=== PATIENT | male | born 1955 | race Caucasian/White ===

== ENCOUNTER → 2017-06-25 | Outpatient (CLI) | payer MEDICARE, BC ==
--- NOTE | 2017-06-25 13:50 | CT ---
EXAMINATION TYPE: CT soft tissue neck w con DATE OF EXAM: 06/25/2017 HISTORY: Parathyroid Adenoma COMPARISON: NONE CT DLP: 719 mGycm. Automated Exposure Control for Dose Reduction was Utilized. TECHNIQUE: CT scan of the neck is performed with IV Contrast, patient injected with 100 ml mL of Iso leora 300, axial images are obtained, coronal and sagittal reformatted images are reviewed. FINDINGS: Airway: Nasopharyngeal and oropharyngeal airways are patent. Region of epiglottis and vallecula is wi thin normal limits. Hypopharyngeal airway is grossly unremarkable. There are scattered small nodules throughout the thyroid, largest measures up to 1 cm long axis mid pole level left thyroid on axial im age 60. There is no suspicious posterior thyroid soft tissue nodule to suggest parathyroid adenoma. There is mild emphysematous change with blebs in the lung apices. There is 5 mm subpleural nodule ant erolateral right upper lung axial image 88. Parotid/submandibular glands: No gross abnormality seen. Carotid/Vascular Structures: No significant focal plaque at carotid bulb level bilaterally. Osseous Structures: There is loss of normal cervical curvature. There is posterior spur disc complex effacing anterior thecal sac C6-C7 level on sagittal image 59 confirmed left paracentral region axial image 58 and causing asymmetric moderate to advanced left-sided neural foraminal narrowing. Other: No greater than 1 cm neck adenopathy is present bilaterally. There are scattered prominent but subcentimeter neck lymph nodes. IMPRESSION: 1. No suspicious soft tissue nodule in region of thyroid bed to suggest parathyroid adenoma. Consider nuclear medicine confirmation. 2. Scattered thyroid nodules measuring up to 1.0 cm in size left thyroid lobe. Consider thyroid ultra sound follow-up to further evaluate and characterize. 3. There is 5 mm anterolateral right upper lung nodule, consider dedicated chest CT to further evalua te for possible additional nodules.
== END | disposition home or self-care (01) ==
LOC: RADCTMAIN 12:35
PROVIDERS: ATTEND Surgery
DX: E04.2 Nontoxic multinodular goiter (principal); Z88.5 Allergy status to narcotic agent; Z88.8 Allergy status to other drugs, medicaments and biological substances
CPT/HCPCS: 82310; 83970; 70491; 36415; Q9967

== ENCOUNTER 2017-07-13 10:00 | Day surgery (SDC) | payer MEDICARE, BC ==
[2017-07-02 09:43] VITALS: BMI 39.4
[~2017-07-13 10:00] MED LIST: DEXAMETHASONE SOD PHOSPHATE 10 MG/ML 1 ML VIAL IV ONE; MIDAZOLAM 2 MG/2 ML VIAL IV PRN; ONDANSETRON 4 MG/2 ML VIAL IVP ONE; Pre Op ABX Message 1 EACH MISC MISCELLANE ONE; SCOPOLAMINE 1.5MG/72HR PATCH TRANSDERM ONE; fentaNYL (PF) 50 MCG/ML 2 ML AMP IV PRN
[2017-07-13] MEDS ORDERED: HEPARIN SODIUM,PORCINE 5,000 UNIT/ML 1 ML VIAL SQ STA (10:49)
[2017-07-13] MEDS ORDERED: LIDOCAINE 1% 20 ML VIAL (10MG/ML) FOR IV START INTRADERMA ONE (11:01)
[2017-07-13] MEDS: LACTATED RINGERS 1,000 ML IV SCH ×2 (11:01→11:21)
[2017-07-13] MEDS ORDERED: LIDOCAINE 1% INJ 10MG/ML (20 ML MDV) ONE (11:24)
[2017-07-13] MEDS ORDERED: PHENYLEPHRINE-0.9% NACL SYG 1 MG/10 ML SYRINGE ONE (11:24)
[2017-07-13] MEDS ORDERED: PROPOFOL 10 MG/ML 20 ML VIAL IV ONE (11:24)
[2017-07-13] MEDS ORDERED: GLYCOPYRROLATE 0.2 MG/ML 2 ML VIAL ONE (11:24)
[2017-07-13] MEDS ORDERED: MIDAZOLAM 2 MG/2 ML VIAL ONE (11:24)
[2017-07-13] MEDS ORDERED: fentaNYL (PF) 50 MCG/ML 2 ML AMP ONE (11:24)
[2017-07-13] MEDS ORDERED: SUCCINYLCHOLINE CHLORIDE 100 MG/5 ML SYR IV ONE (11:24)
[2017-07-13] MEDS ORDERED: HEPARIN SODIUM,PORCINE 5,000 UNIT/ML 1 ML VIAL SQ ONE (11:27)
[2017-07-13] MEDS ORDERED: LACTATED RINGERS 1,000 ML IV ONE (12:05)
[2017-07-13] MEDS ORDERED: NALOXONE 0.4 MG/ML 1 ML VIAL IV PRN (13:34)
[2017-07-13] MEDS ORDERED: ONDANSETRON 4 MG/2 ML VIAL IVP PRN (13:34)
--- NOTE | 2017-07-13 13:34 | P.OP ---
Date of Procedure: 07/13/17 Preoperative Diagnosis: Primary hyperparathyroidism Postoperative Diagnosis: Left superior pole parathyroid adenoma Procedure(s) Performed: Neck exploration, excision of left superior parathyroid adenoma Anesthesia: KENNYA Surgeon: Bela Armas Estimated Blood Loss (ml): 15 IV fluids (ml): 1,400 Pathology: other (Left superior pole parathyroid) Condition: stable Disposition: PACU Indications for Procedure: Primary hyperparathyroidism Operative Findings: Enlarged left superior parathyroid Description of Procedure: Patient is a 62-year-old white male who was diagnosed with primary hyperparathyroidism. He had a sestamibi scan as well as a CAT scan which were suspicious for a left superior pole parathyroid adenoma. The patient was taken to the operating room following the induction of general anesthesia the nerve stimulator probes were placed. The neck was prepped and draped in a sterile fashion. The patient was placed in the beachchair position. A collar incision was made and carried down through the skin and subcutaneous tissue and platysma. Superior and inferior skin flaps were developed. Retractors were placed and the strap muscles were in the midline. The left lobe of the thyroid was identified and approached. The lobe was rotated medially. To facilitate this was necessary to ligate the superior pole vessels. Additionally it was necessary to ligate several inferior pole vessels. As the lobe was rotated medially what was believed to be the inferior parathyroid was identified and preserved. The area of the recurrent laryngeal nerve was carefully identified, and preserved. At this point there was a large soft tissue mass which was approximately 2.5 x 1 cm in size identified posterior to the superior pole of the left lobe. It appeared that it had bled into this mass with an intra-lesion hematoma, the area was carefully dissected free. The specimen was removed and sent to pathology for frozen section evaluation. On frozen section this was consistent with a parathyroid hypercellular lesion. Palpation in the area did not reveal any residual additional gland tissue. We then determined that hemostasis was attained and the right side of the lobe was evaluated. No evidence of any enlarged glands were identified. After we were assured that hemostasis was attained the wound was well irrigated. Strap muscles were closed in the midline using a Vicryl suture. This was followed by closure of the platysma with a Vicryl suture. The skin was closed with 4-0 Monocryl. Steri-Strips were applied. All instrument and sponge counts were correct at the end of the case.
[2017-07-13] MEDS: MORPHINE SULFATE 4MG/4ML SYRG IV PRN ×2 (15:57→20:57)
[2017-07-13] MEDS: DEXTROSE 5%-0.45% NACL 1,000 ML IV SCH (16:00)
[2017-07-13] MEDS: HEPARIN SODIUM,PORCINE 5,000 UNIT/ML 1 ML VIAL SQ SCH (18:17)
[2017-07-13] MEDS: CALCIUM CARB-VIT D 500MG-200UN 1 EACH TAB PO SCH (18:17)
[2017-07-13] MEDS: FAMOTIDINE 20 MG TAB PO SCH (20:51)
[2017-07-13] MEDS ORDERED: NITROGLYCERIN SL TABS 0.4 MG TAB SUBLINGUAL PRN (21:22)
[2017-07-13] MEDS ORDERED: HYDROcodone/APAP 7.5-325MG 1 EACH TAB PO PRN (21:22)
[2017-07-13] MEDS ORDERED: FLUTICASONE 50MCG/SPRAY NASAL 16GM EA NOSTRIL PRN (21:22)
[2017-07-13] MEDS: METOPROLOL TARTRATE 50 MG TAB PO SCH (22:16)
[2017-07-13] MEDS ORDERED: HYDROcodone/APAP 7.5-325MG 1 EACH TAB ONE (23:20)
[2017-07-14] MEDS ORDERED: HYDROcodone/APAP 7.5-325MG 1 EACH TAB ONE
[2017-07-14] MEDS ORDERED: HEPARIN SODIUM,PORCINE 5,000 UNIT/ML 1 ML VIAL ONE
[2017-07-14] MEDS: DEXTROSE 5%-0.45% NACL 1,000 ML IV SCH (05:20)
[2017-07-14] MEDS: HEPARIN SODIUM,PORCINE 5,000 UNIT/ML 1 ML VIAL SQ SCH ×2 (05:20→08:09)
[2017-07-14] MEDS ORDERED: PANTOPRAZOLE 40 MG TABLET PO SCH ×2 (07:30→13:38)
[2017-07-14 07:44] VITALS: BP 129/83; PULSE 62; RESP 16; TEMP 97.5
[2017-07-14] MEDS: METOPROLOL TARTRATE 50 MG TAB PO SCH (08:09)
[2017-07-14] MEDS: CALCIUM CARB-VIT D 500MG-200UN 1 EACH TAB PO SCH (08:09)
[2017-07-14] MEDS: FAMOTIDINE 20 MG TAB PO SCH (08:09)
[2017-07-14] MEDS ORDERED: ISOSORBIDE MONONITRATE ER 60 MG TAB.ER.24H PO SCH (09:00)
[2017-07-14] MEDS ORDERED: MORPHINE ORAL SOLN 10 MG/5 ML CUP PO PRN (11:34)
[2017-07-14] MEDS ORDERED: CHOLECALCIFEROL 1,000 UNIT TAB PO SCH (12:00)
--- NOTE | 2017-07-14 12:05 | P.DS ---
Providers Expected date of discharge: 07/14/17 Attending physician: Bela Armas Consults: 07/13/17 13:50 Consult Physician Routine Consulting Provider: Matthias Stinson Consult Reason/Comments: medical managment Do you want consulting provider notified?: Yes Primary care physician: Stated None Hospital Course: 62-year-old presented to undergo an elective neck exploration excision of left superior parathyroid adenoma for primary hyperparathyroidism. The procedure was done on July 13. The morning of discharge the surgical dressing was removed Steri-Strips just to the incision site were dry. Calcium level 9.1 it had been 10.3 the day before the PTH 19.2 patient was felt to be stable and appropriate proceed with a discharge. discharge diagnosis Neck exploration, excision of left superior parathyroid adenoma done on July 13 Primary hyperparathyroidism Enlarged left superior parathyroid The above impression and plan of care have been discussed and directed by signing physician. Bre Conner nurse practitioner acting as scribe for signing physician. Plan - Discharge Summary Discharge Rx Participant: Yes New Discharge Prescriptions: New Calcium Carb-Vit D 500Mg-200Un [Oscal 500+D] 2 each PO BID-W/MEALS tab Continue Cholecalciferol [Vitamin D3] 5,000 unit PO DAILY Nitroglycerin Sl Tabs [Nitrostat] 0.4 mg SUBLINGUAL Q5M PRN PRN Reason: Chest Pain Fluticasone Nasal [place] [Flonase Nasal [place]] 2 spr EA NOSTRIL DAILY PRN PRN Reason: Allergy Symptoms Metoprolol Tartrate [Lopressor] 50 mg PO BID Isosorbide Mononitrate ER [Imdur] 60 mg PO DAILY Omeprazole [PriLOSEC] 20 mg PO AC-BID Hydrocodone/Acetaminophen [[place] 7.5-325] 1 tab PO Q4HR PRN PRN Reason: Pain Evolocumab [Repatha Sureclick] 140 mg SQ Q14D Aspirin 81 mg PO DAILY Allergy Shot 1 injection IM Q7D Discharge Medication List Allergy Shot 1 injection IM Q7D 07/02/17 [History] Aspirin 81 mg PO DAILY 07/02/17 [History] Cholecalciferol [Vitamin D3] 5,000 unit PO DAILY 07/02/17 [History] Evolocumab [Repatha Sureclick] 140 mg SQ Q14D 07/02/17 [History] Fluticasone Nasal [place] [Flonase Nasal [place]] 2 spr EA NOSTRIL DAILY PRN [History] Hydrocodone/Acetaminophen [[place] 7.5-325] 1 tab PO Q4HR PRN 07/02/17 [History] Isosorbide Mononitrate ER [Imdur] 60 mg PO DAILY 07/02/17 [History] Metoprolol Tartrate [Lopressor] 50 mg PO BID 07/02/17 [History] Nitroglycerin Sl Tabs [Nitrostat] 0.4 mg SUBLINGUAL Q5M PRN 07/02/17 [History] Omeprazole [PriLOSEC] 20 mg PO AC-BID 07/02/17 [History] Calcium Carb-Vit D 500Mg-200Un [Oscal 500+D] 2 each PO BID-W/MEALS tab [Rx] Follow up Appointment(s)/Referral(s): Bela Armas MD [STAFF PHYSICIAN] - 1 Week Nonstaff,Physician [REFERRING] - 1 Week (Dr. Penny Boyd ) Activity/Diet/Wound Care/Special Instructions: Discharge instructions keep surgical dressing dry until seen in the follow-up visit with Dr. Houston notify Dr. Houston of any numbness tingly sensation around the mouth difficulty swallowing swelling at surgical site fever chills redness from surgical dressing site with drainage Discharge Disposition: HOME SELF-CARE
--- NOTE | 2017-07-14 21:34 | P.CONS ---
History of Present Illness - Reason for Consult Consult date: 07/14/17 Medical management Requesting physician: Bela Armas - Chief Complaint Left upper lobe parathyroidectomy for benign reasons - History of Present Illness This is a 62-year-old pleasant gentleman patient of [facility], with known history of primary hyperparathyroidism, and was found to have her thyroid adenoma based on the sestamibi scan and a CAT scan. Patient underwent excision and exploratory laparotomy off the superior parathyroid adenoma adenoma without any complications, performed by Dr. Mildred Rubin on 07/13/2017, with good hemostasis, we are consulted for medical management. Patient currently is asymptomatic, no lightheadedness and dizziness, no dysphagia, no neck pressure, postoperative pain is under control, patient denies any trismus or cramps, no other motor neurologic deficits laboratories are showing PTH 19.2, calcium of 10.4, preop and postop numbers are 10.3 currently at 9.2 5.1 Review of Systems Constitutional: Reports as per HPI, Denies anorexia, Denies chills, Denies chronic headaches, Denies chronic pain, Denies daytime sleepiness, Denies fatigue, Denies fever, Denies lethargy, Denies malaise, Denies night sweats, Denies poor appetite, Denies sweats, Denies weakness, Denies weight gain, Denies weight loss Ears, nose, mouth and throat: Reports as per HPI, Denies ant. neck pain, Denies bleeding gums, Denies dental pain, Denies dysphagia, Denies epistaxis, Denies headache, Denies hoarseness, Denies mouth pain, Denies nasal congestion, Denies nasal discharge, Denies neck fullness/pressure, Denies neck lump, Denies nose pain, Denies odynophagia, Denies post-nasal drip, Denies sinus pain, Denies sinus pressure, Denies swelling in mouth, Denies swelling in throat, Denies sore throat, Denies vertigo, Denies voice changes Cardiovascular: Reports as per HPI, Denies chest pain, Denies claudication, Denies decreased exercise tolerance, Denies dyspnea on exertion, Denies edema, Denies high blood pressure, Denies irregular heart beat, Denies leg edema, Denies lightheadedness, Denies orthopnea, Denies palpitations, Denies paroxysmal nocturnal dyspnea, Denies phlebitis, Denies rapid heart beat, Denies shortness of breath, Denies syncope Respiratory: Reports as per HPI, Denies congestion, Denies cough, Denies cough with sputum, Denies dyspnea, Denies excessive sputum, Denies hemoptysis, Denies home oxygen, Denies pain, Denies pain on inspiration, Denies pleurisy, Denies respiratory infections, Denies sleep apnea, Denies snoring, Denies wheezing Gastrointestinal: Reports as per HPI, Denies abdominal pain, Denies belching, Denies bloating, Denies BRBPR, Denies change in bowel habits, Denies coffee ground emesis, Denies constipation, Denies diarrhea, Denies dyspepsia, Denies early satiety, Denies excessive gas, Denies heartburn, Denies hematemesis, Denies hematochezia, Denies indigestion, Denies jaundice, Denies lactose intolerance, Denies loss of appetite, Denies melena, Denies nausea, Denies vomiting Genitourinary: Reports as per HPI, Denies decreased libido, Denies difficulties fathering child, Denies discharge, Denies dysuria, Denies erectile dysfunction, Denies flank pain, Denies genital pain, Denies genital sores, Denies hematuria, Denies impotence, Denies incontinence, Denies kidney stones, Denies nocturia, Denies polyuria, Denies testicular lump, Denies testicular pain, Denies urinary frequency, Denies urinary hesitancy, Denies urinary retention Musculoskeletal: Reports as per HPI, Denies arm numbness/tingling, Denies atrophy, Denies fractures, Denies frequent falls, Denies gait dysfunction, Denies hot joints, Denies leg numbness/tingling, Denies limitation of motion, Denies loss of height, Denies low back pain, Denies morning stiffness, Denies muscle cramps, Denies muscle weakness, Denies myalgias, Denies neck pain, Denies neck stiffness, Denies prior amputations, Denies redness of joints, Denies shooting arm pain, Denies shooting leg pain Integumentary: Reports as per HPI, Denies acne, Denies boils, Denies brittle nails, Denies change in hair/nails, Denies color changes, Denies darkening of skin, Denies depigmentation, Denies dryness, Denies foot/leg ulcers, Denies growths, Denies hirsutism, Denies lesions, Denies onychomycosis, Denies pruritus , Denies rash, Denies sores, Denies striae, Denies unusual bruising, Denies wounds Neurological: Reports as per HPI, Denies aphasia, Denies ataxia, Denies balance difficulties, Denies burning pain, Denies change in mentation, Denies change in smell/taste, Denies change in speech, Denies confusion, Denies convulsions, Denies double vision, Denies gait dysfunction, Denies head injury, Denies headaches, Denies hearing difficulties, Denies lack of coordination, Denies loss of vision, Denies memory loss, Denies migraines, Denies motor disturbance, Denies numbness, Denies paralysis, Denies paresthesias, Denies seizures, Denies sensory deficit, Denies spasticity, Denies syncope, Denies tic, Denies tingling , Denies transient paralysis, Denies tremors, Denies vertigo, Denies weakness, Denies visual changes Psychiatric: Reports as per HPI, Denies anhedonia, Denies anxiety, Denies anxiety attacks, Denies change in appetite, Denies change in libido, Denies change in sleep habits, Denies confusion, Denies depression, Denies difficulty concentrating, Denies disorientation, Denies hallucinations, Denies hopelessness , Denies hypersomnia, Denies insomnia, Denies irritability, Denies memory loss, Denies mood swings, Denies paranoia, Denies sadness/tearfulness, Denies sleep disturbances, Denies suicidal ideation Endocrine: Reports as per HPI, Denies cold intolerance, Denies deepening of the voice, Denies excessive sweating, Denies excessive thirst, Denies fatigue, Denies flushing, Denies heat intolerance, Denies high blood sugars, Denies increase in ring/shoe/hat size, Denies low blood sugars, Denies nocturia, Denies palpitations, Denies polydipsia, Denies polyphagia, Denies polyuria, Denies proptosis, Denies recent glucocorticoid use, Denies thyroid mass, Denies weight change Hematologic/Lymphatic: Reports as per HPI, Denies easy bleeding, Denies easy bruising, Denies lymphadenopathy, Denies lymphedema, Denies thrombophilia Allergic/Immunologic: Reports as per HPI, Denies allergic rhinitis, Denies anaphylaxis, Denies angioedema, Denies gluten intolerance, Denies persistent infections, Denies seasonal allergies, Denies urticaria, Denies wheezing Past Medical History Past Medical History: No Reported History, GERD/Reflux, Hyperlipidemia, Hypertension, Myocardial Infarction (OR), Osteoarthritis (OA), Sleep Apnea/CPAP/ BIPAP, Thyroid Disorder Additional Past Medical History / Comment(s): DOES NOT USE C PAP USES O2 AT NIGHT , NODULE ON THYROID ,PARATHYROID ADENOMA, Last Myocardial Infarction Date:: 07/02/15 History of Any Multi-Drug Resistant Organisms: None Reported Past Surgical History: Cholecystectomy, Heart Catheterization, Heart Catheterization With Stent Additional Past Surgical History / Comment(s): AORTIC ANEURYSM, LEFT KNEE ARTHROSCOPIC , RIGHT FOOT SURGERY Past Anesthesia/Blood Transfusion Reactions: No Reported Reaction Date of Last Stent Placement:: 07/02/15 Past Psychological History: Anxiety Smoking Status: Former smoker Past Alcohol Use History: None Reported Additional Past Alcohol Use History / Comment(s): STARTED SMOKING AT AGE 14 QUIT APR 1999 SMOKED 1PPD Past Drug Use History: None Reported - Past Family History Mother Family Medical History: No Reported History Additional Family Medical History / Comment(s): Mother in her 90s, old age diabetes mellitus, father at the young age from a fire, 9 brothers, one had cancer of the lung from [place], diabetes mellitus, 3 sisters healthy, no daughter one son healthy Medications and Allergies Home Medications Medication Instructions Recorded Confirmed Type Allergy Shot 1 injection IM Q7D 07/02/17 07/13/17 History Aspirin 81 mg PO DAILY 07/02/17 07/13/17 History Cholecalciferol [Vitamin D3] 5,000 unit PO DAILY 07/02/17 07/13/17 History Evolocumab [Repatha Sureclick] 140 mg SQ Q14D 07/02/17 07/13/17 History Fluticasone Nasal [place] [Flonase 2 spr EA NOSTRIL DAILY PRN 07/02/17 07/13/17 History Nasal [place]] Hydrocodone/Acetaminophen [[place] 1 tab PO Q4HR PRN 07/02/17 07/13/17 History 7.5-325] Isosorbide Mononitrate ER [Imdur] 60 mg PO DAILY 07/02/17 07/13/17 History Metoprolol Tartrate [Lopressor] 50 mg PO BID 07/02/17 07/13/17 History Nitroglycerin Sl Tabs [Nitrostat] 0.4 mg SUBLINGUAL Q5M PRN 07/02/17 07/13/17 History Omeprazole [PriLOSEC] 20 mg PO AC-BID 07/02/17 07/13/17 History Calcium Carb-Vit D 500Mg-200Un 2 each PO BID-W/MEALS tab 07/14/17 Rx [Oscal 500+D] Allergies Allergy/AdvReac Type Severity Reaction Status Date / Time hydromorphone [From Dilaudid] Allergy SHAKY AND Verified 07/02/17 08:29 NAUSEA AND VOMITING methylprednisolone Allergy SHAKY,SWEATING, Verified 07/02/17 08:31 [From Medrol] NAUSEA niacin Allergy PASSED Verified 07/02/17 08:28 OUT, VERY HOT Coodjnl-[id number]-Zhx Reductase AdvReac SEVERE Verified 07/02/17 08:31 Inhibitor MUSCLE PAIN Physical Exam Vitals: Vital Signs Temp Pulse Pulse Pulse Resp BP BP 07/14/17 07:00 97.5 F L 62 16 129/83 07/13/17 21:12 98 F 111 H 20 143/80 07/13/17 16:00 93 95 18 07/13/17 15:15 97.4 F L 95 18 142/81 07/13/17 14:45 93 16 134/80 07/13/17 14:30 91 16 1160/98 07/13/17 14:15 96 16 140/89 07/13/17 13:57 91 16 137/82 07/13/17 13:42 97.2 F L 93 19 167/92 07/13/17 10:53 98.4 F 73 18 125/74 Pulse Ox 07/14/17 07:00 96 07/13/17 21:12 92 L 07/13/17 16:00 07/13/17 15:15 93 L 07/13/17 14:45 94 L 07/13/17 14:30 95 07/13/17 14:15 93 L 07/13/17 13:57 94 L 07/13/17 13:42 94 L 07/13/17 10:53 94 L Intake and Output 07/13/17 07/14/17 07/14/17 22:59 06:59 14:59 Other: Voiding Method Toilet Urinal # Voids 3 4 Weight 124.738 kg - Constitutional General appearance: cooperative, no acute distress, obese - EENT Eyes: anicteric sclerae, EOMI, PERRLA, dentition normal, normal appearance ENT: NA/AT, normal oropharynx - Neck Neck: no lymphadenopathy, normal ROM, no other, no rigidity, no stridor, no thyromegaly Thyroid: bilateral: normal size (Surgical dressing intact, no swelling, voice is normal,) - Respiratory Respiratory: bilateral: CTA, negative: rales, rhonchi ( no hoarseness), wheezing - Cardiovascular Rhythm: regular Heart sounds: normal: S1, S2 Abnormal Heart Sounds: no systolic murmur, no diastolic murmur, no rub, no S3 Gallop, no S4 Gallop, no click, no other - Gastrointestinal General gastrointestinal: normal bowel sounds, soft - Integumentary Integumentary: normal, normal turgor - Neurologic Neurologic: CNII-XII intact, focal deficits - Musculoskeletal Musculoskeletal: gait normal (None), strength equal bilaterally - Psychiatric Psychiatric: A&O x's 3, appropriate affect, intact judgment & insight Results Labs: Abnormal Lab Results - Last 24 Hours (Table) 07/13/17 07/13/17 Range/Units 15:12 21:47 Calcium 10.4 H 10.3 H (8.4-10.2) mg/dL Laboratory Results Calcium 9.2 mg/dL (8.4-10.2) 07/14/17 11:52 PTH Intact 19.2 pg/mL (14.0-72.0) 07/13/17 15:12 Assessment and Plan Plan: 1. Primary left upper lobe parathyroid adenoma diagnosed with a sestamibi scan , with successful excision of the parathyroid adenoma, performed on 07/13/2017, no postoperative complications noted serum calcium levels are normalized a postoperative PTH level has normalized, unknown baseline patient is to continue monitor in serum calcium was now patient, and postoperatively, upon discharge later today, he is stable, is to continue on incentive spirometry program, diet per surgical service 2. Hypertension, restart metoprolol 50 mg twice a day at home dose, Imdur 60 mg daily, 3. Hyperlipidemia, statin intolerant, on PACS canine inhibitors,repatha as scheduled, 4. Known CAD with any cardiac symptomatology, his heart stent was in June 2015 , 1 stent, continue on metoprolol 50 mg twice a day Imdur 60 mg daily, and we' ll going to restart aspirin on discharge 81 mg at home dose 5. Previous history of tobacco, no current pulmonary complaints 6 Osteoarthritis, patient has norco prior to admission 7 BPH without any urinary Symptomatology 8 Sleep apnea not on CPAP or BiPAP, on maintenance O2 at 2 L is a cannula 9 GERD on maintenance omeprazole 20 mg twice a day at home Thank you Dr. Armas in allowing us to precipitate the care of your patient. We'll going to follow him with you during this current hospitalization , patient is medically stable.
[2017-07-15] MEDS ORDERED: ASPIRIN 81 MG PO SCH (09:00)
== END 2017-07-14 13:15 | disposition home or self-care (01) ==
LOC: OR 10:00 → 5MS5E 13:27 → OR 07-14 13:15
PROVIDERS: ATTEND Surgery
DX: D35.1 Benign neoplasm of parathyroid gland (principal); E21.0 Primary hyperparathyroidism; M85.80 Other specified disorders of bone density and structure, unspecified site; Z87.891 Personal history of nicotine dependence; G47.33 Obstructive sleep apnea (adult) (pediatric); Z99.81 Dependence on supplemental oxygen; I10 Essential (primary) hypertension; I25.2 Old myocardial infarction; M19.90 Unspecified osteoarthritis, unspecified site; I25.10 Atherosclerotic heart disease of native coronary artery without angina pectoris; E78.5 Hyperlipidemia, unspecified; K21.9 Gastro-esophageal reflux disease without esophagitis; Z79.02 Long term (current) use of antithrombotics/antiplatelets; Z79.82 Long term (current) use of aspirin; Z79.899 Other long term (current) drug therapy; Z88.5 Allergy status to narcotic agent; Z88.8 Allergy status to other drugs, medicaments and biological substances
CPT/HCPCS: 88305; 82310 ×2; 88331; 83970; 60500; J2250; J1644 ×2; J1100; J2405; J2001; J3010; J2370; J0330; J2704; J2270